=== PATIENT | male | born 1955 | race Caucasian/White ===

== ENCOUNTER 2016-06-30 22:09 | Emergency (ER) | payer MEDICAID, OTHER ==
[~2016-06-30] VITALS: Ht 172.7 cm; Wt 77.1 kg
[2016-06-30 22:33] VITALS: BP 141/77
[2016-06-30] MEDS ORDERED: PredniSONE 20mg tab ORAL ONE (22:45)
[2016-06-30] MEDS ORDERED: PREDNISONE20 MG ORAL (22:54)
[2016-06-30] MEDS ORDERED: BENADRYL25 MG ORAL (22:54)
--- NOTE | 2016-06-30 22:55 | Emergency Room Report ---
History of Present Illness General Chief Complaint: Allergic Reaction Source: Patient Present Illness HPI Is a 61-year-old male with her sensitive skin. He has a lot of allergies. His but from home deodorizer spray. She sprayed it. Shortly afterward he started breaking out to his face. He started getting warm and red. Denies any fever chills denies shortness of breath. Similar symptom in the past. He took Claritin before coming here. No other complaint. Allergies: Coded Allergies: ASPIRIN (Verified Allergy, Unknown, 06/30/16) CEPHALEXIN (Verified Allergy, Unknown, 06/30/16) EGG (Verified Allergy, Unknown, 06/30/16) SULFA (SULFONAMIDE ANTIBIOTICS) (Verified Allergy, Unknown, 06/30/16) SULFAMETHOXAZOLE (Verified Allergy, Unknown, 06/30/16) TRIMETHOPRIM (Verified Allergy, Unknown, 06/30/16) Patient History Past Medical History: see triage record, old chart reviewed Past Surgical History: other Pertinent Family History: none Social History: Denies: smoking Immunizations: other Reviewed Nursing Documentation: PMH: Agreed, PSxH: Agreed Review of Systems Eye: Denies: blurred vision, eye pain ENT: Denies: ear pain, nose congestion, throat swelling Respiratory: Denies: cough, shortness of breath Cardiovascular: Denies: chest pain, palpitations Gastrointestinal: Denies: abdominal pain, diarrhea, nausea, vomiting Musculoskeletal: Denies: back pain, joint pain Skin: Denies: rash Neurological: Denies: headache, numbness Endocrine: Denies: increased thirst, increased urine Hematologic/Lymphatic: Denies: easy bruising All Other Systems: negative except mentioned in HPI Physical Exam Vital Signs Date Time Temp Pulse Resp B/P Pulse Ox O2 Delivery O2 Flow Rate FiO2 06/30/16 22:16 97.5 76 18 188/77 99 Room Air vital hypertension Sp02 EP Interpretation: reviewed, normal General Appearance: well appearing, no apparent distress, alert Head: normocephalic, atraumatic Eyes: bilateral eye EOMI, bilateral eye PERRL ENT: hearing grossly normal, normal pharynx Neck: full range of motion, supple, no meningismus Respiratory: chest non-tender, lungs clear, normal breath sounds Cardiovascular #1: regular rate, rhythm, no murmur Gastrointestinal: normal bowel sounds, non tender, no mass, no organomegaly, no bruit, non-distended Musculoskeletal: back normal, gait/station normal, normal range of motion Neurologic: alert, oriented x3 Psychiatric: mood/affect normal Skin: warm/dry, other - Scatter redness and urticaria and neck. Medical Decision Making Diagnostic Impression: Primary Impression: Allergic reaction Qualified Codes: T78.40XA - Allergy, unspecified, initial encounter Additional Impression: Hypertension Qualified Codes: I10 - Essential (primary) hypertension ER Course Patient present with skin irritation and possible allergic reaction. No anaphylaxis. We'll discharge home. Last Vital Signs Date Time Temp Pulse Resp B/P Pulse Ox O2 Delivery O2 Flow Rate FiO2 06/30/16 22:33 97.5 64 18 141/77 99 Room Air Status: improved Disposition: HOME, SELF-CARE Condition: Stable Scripts Diphenhydramine Hcl* (BENADRYL*) 25 Mg Capsule 50 MG ORAL Q6H Y for Itching, #30 CAP Prov: CAMERON JEREZ M.D. 06/30/16 Prednisone* (PREDNISONE*) 20 Mg Tablet 60 MG ORAL DAILY, #12 TAB Prov: CAMERON JEREZ M.D. 06/30/16 Patient Instructions: Allergies Additional Instructions: Followup with your Dr. in 7 days. Return if worse. CAMERON JEREZ M.D. Jun 30, 2016 22:55
[2016-06-30 23:03] VITALS: BP 141/77
== END 2016-06-30 23:03 | disposition home or self-care (01) ==
LOC: EMR 22:54
DX: T78.1XXA Other adverse food reactions, not elsewhere classified, initial encounter (principal); X58.XXXA Exposure to other specified factors, initial encounter; I10 Essential (primary) hypertension; Z88.1 Allergy status to other antibiotic agents; Z88.2 Allergy status to sulfonamides; Z88.6 Allergy status to analgesic agent; Z91.012 Allergy to eggs
CPT/HCPCS: 99284

== ENCOUNTER → 2016-10-20 | Emergency (ER) | payer MEDICAID ==
[~2016-10-20] VITALS: Ht 172.7 cm; Wt 74.8 kg
[~2016-10-20] MED LIST: BENADRYL25 MG ORAL; IBUPROFEN600 MG ORAL; PREDNISONE20 MG ORAL
[2016-10-20 12:51] VITALS: BP 169/89
--- NOTE | 2016-10-20 14:35 | Emergency Room Report ---
History of Present Illness General Chief Complaint: Lower Extremity Injury Source: Patient Present Illness HPI 61 YO Male presents to the ED c/o consistent right foot pain x 10 days.Pt describes pain as 3/10 in severity sore/ache. pt. reports recalling slight twisting of ankle when stepping on uneven side walk, denies appreciable trauma otherwise. pt. reports walking daily with in attempt to be healthy. pt. denies previous injury to the foot. pt. states he took Motrin with mild relief, but his symptoms have returned. denies bruising, decreased temperature, or skin color changes to the foot. Denies numbness tingling or loss of sensation or gross motor movements of the extremities, incontinence of bowel or bladder. Denies CP, Palpitations, LOC, AMS, dizziness, Changes in Vision, Sensation, paresthesias, or a sudden severe headache Allergies: Coded Allergies: ASPIRIN (Verified Allergy, Unknown, 06/30/16) CEPHALEXIN (Verified Allergy, Unknown, 06/30/16) EGG (Verified Allergy, Unknown, 06/30/16) SULFA (SULFONAMIDE ANTIBIOTICS) (Verified Allergy, Unknown, 06/30/16) SULFAMETHOXAZOLE (Verified Allergy, Unknown, 06/30/16) TRIMETHOPRIM (Verified Allergy, Unknown, 06/30/16) Patient History Past Medical History: see triage record Past Surgical History: none Pertinent Family History: none Immunizations: UTD Reviewed Nursing Documentation: PMH: Agreed, PSxH: Agreed Nursing Documentation-PMH Past Medical History: No History, Except For Review of Systems All Other Systems: negative except mentioned in HPI Physical Exam Vital Signs Date Time Temp Pulse Resp B/P Pulse Ox O2 Delivery O2 Flow Rate FiO2 10/20/16 12:51 98.1 81 17 169/89 98 Room Air Sp02 EP Interpretation: reviewed, normal General Appearance: no apparent distress, alert, GCS 15, non-toxic Head: normocephalic, atraumatic Eyes: bilateral eye PERRL, bilateral eye normal inspection ENT: hearing grossly normal, normal voice Neck: full range of motion, supple/symm/no masses Respiratory: lungs clear, normal breath sounds, speaking full sentences Cardiovascular #1: regular rate, rhythm, no edema Cardiovascular #2: 2+ dorsalis pedis (R) Musculoskeletal: back normal, gait/station normal, normal range of motion, tender - ttp to the lateral right ankle, and the dorsum of the right mid foot. no bruises, no erythema, NVI, no obvious deformity Neurologic: alert, oriented x3, responsive, motor strength/tone normal, sensory intact, speech normal Psychiatric: judgement/insight normal, memory normal, mood/affect normal Skin: normal color, no rash, warm/dry, well hydrated, other - pt has moderate visible spider veins to the bilateral feet, no evidence of circulatory compromise at this time. no lesions. Medical Decision Making PA Attestation Dr. Sutton is my supervising Physician whom patient management has been discussed with. Diagnostic Impression: Primary Impression: Sprain of foot, right Qualified Codes: S93.601A - Unspecified sprain of right foot, initial encounter Additional Impression: Heel spur Qualified Codes: M77.31 - Calcaneal spur, right foot ER Course 61 YO Male presents to the ED c/o consistent right foot pain x 10 days.Pt describes pain as 3/10 in severity sore/ache. pt. reports recalling slight twisting of ankle when stepping on uneven side walk, denies appreciable trauma otherwise. pt. reports walking daily with in attempt to be healthy. pt. denies previous injury to the foot. pt. states he took Motrin with mild relief, but his symptoms have returned. denies bruising, decreased temperature, or skin color changes to the foot. Denies numbness tingling or loss of sensation or gross motor movements of the extremities, incontinence of bowel or bladder. Denies CP, Palpitations, LOC, AMS, dizziness, Changes in Vision, Sensation, paresthesias, or a sudden severe headache. Ddx considered but are not limited to Fracture, dislocation, contusion, Sprain/ Strain/Spasm, heel spur, plantar fasciitis just to name a few Vital signs: are WNL, pt. is afebrile H&PE are most consistent with musculoskeletal injury will perform imaging to r/ o fractures/dislocations. ORDERS: - X-ray right foot 3 views - negative for fx, Dislocation, or significant soft tissue injury, significant arthritic changes, and suspected heel spur per preliminary read in ED by Dr. Sutton - interpretation is scribed by PA. -- X-ray Right ankle 3 views - negative for fx, Dislocation, or significant soft tissue injury, per preliminary read in ED by Dr. Sutton - interpretation is scribed by PA. -Official radiology report of imaging is no acute process, Findings: No acute fractures. No dislocations. Joint spaces are preserved. 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 declined. -Pt. provided with a pair of crutches. I do not suspect an emergent condition at this time. with current presentation pt. is stable for close outpatient follow up. d/w pt. conservative treatment, and to follow up with a primary care provider. pt given a list of primary care clinics for follow up. d/w pt. to return to the ED with worsening or new symptoms. DISCHARGE: At this time pt. is stable for d/c to home. Will provide printed patient care instructions, and any necessary prescriptions. Care plan and follow up instructions have been discussed with the patient prior to discharge. Last Vital Signs Date Time Temp Pulse Resp B/P Pulse Ox O2 Delivery O2 Flow Rate FiO2 10/20/16 12:51 98.1 81 17 169/89 98 Room Air Disposition: HOME, SELF-CARE Condition: Stable Scripts Ibuprofen* (MOTRIN*) 600 Mg Tablet 600 MG ORAL THREE TIMES A DAY, #30 TAB 0 Refills Prov: Jazmín Ramírez 10/20/16 Referrals: [facility] (PCP) Patient Instructions: Foot Sprain Additional Instructions: Take medications as directed. Follow up with a Primary Care Provider in 3-5 days, even if your symptoms have resolved. --Please review list of primary care clinics, if you do not already have a primary care provider Return sooner to ED if new symptoms occur, or current symptoms become worse. - Please note that this Emergency Department Report was dictated using [employer] sales [employer] technology software, occasionally this can lead to erroneous entry secondary to interpretation by the dictation equipment. Jazmín Ramírez Oct 20, 2016 14:35
--- NOTE | 2016-10-20 14:51 | Diagnostic Imaging Report ---
Indication: PAIN nontraumatic pain x3 days Technique: 3 views right foot Comparison: none Findings: No acute fractures. No dislocations. Joint spaces are preserved. 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
== END | disposition home or self-care (01) ==
LOC: EMR 13:10
DX: S93.601A Unspecified sprain of right foot, initial encounter (principal); M77.31 Calcaneal spur, right foot; X58.XXXA Exposure to other specified factors, initial encounter; Y93.9 Activity, unspecified; Y92.9 Unspecified place or not applicable; Z88.6 Allergy status to analgesic agent; Z88.2 Allergy status to sulfonamides; Z91.012 Allergy to eggs
CPT/HCPCS: 99283

== ENCOUNTER 2016-12-09 11:47 | Emergency (ER) | payer MEDICAID ==
[~2016-12-09] VITALS: Ht 172.7 cm; Wt 74.8 kg
[2016-12-09] MEDS ORDERED: Sodium Chloride 500ML 500 ML IV ONE (12:24)
[2016-12-09 12:29] VITALS: BP 153/75
--- NOTE | 2016-12-09 12:29 | Emergency Room Report ---
History of Present Illness General Chief Complaint: Nausea, Vomiting, and Diarrhea Source: Patient Present Illness [facility] Patient reports that he was at [place] urgent care yesterday He was given Ultram He has usually been on Motrin He felt that soon after that medication he has become more dizzy lightheaded Patient felt uncomfortable in the epigastric area has become nauseated and vomited several times Denies any lower abdominal pain There is no obvious chest pain denies any back or flank pain Allergies: Coded Allergies: ASPIRIN (Verified Allergy, Unknown, 06/30/16) CEPHALEXIN (Verified Allergy, Unknown, 06/30/16) EGG (Verified Allergy, Unknown, 06/30/16) SULFA (SULFONAMIDE ANTIBIOTICS) (Verified Allergy, Unknown, 06/30/16) SULFAMETHOXAZOLE (Verified Allergy, Unknown, 06/30/16) TRIMETHOPRIM (Verified Allergy, Unknown, 06/30/16) Patient History Past Medical History: see triage record Pertinent Family History: none Reviewed Nursing Documentation: PMH: Agreed, PSxH: Agreed Nursing Documentation-PMH Past Medical History: No History, Except For Hx Cardiac Problems: No Hx Hypertension: No Hx Pacemaker: No Hx Asthma: No Hx COPD: No Hx Diabetes: No Hx Cancer: No Hx Gastrointestinal Problems: No Hx Dialysis: No History Of Psychiatric Problem: No Hx Neurological Problems: No Hx Cerebrovascular Accident: No Hx Seizures: No Review of Systems All Other Systems: negative except mentioned in HPI Physical Exam Vital Signs Date Time Temp Pulse Resp B/P (MAP) Pulse Ox O2 Delivery O2 Flow Rate FiO2 12/09/16 12:09 97.5 74 20 168/90 100 Room Air Sp02 EP Interpretation: reviewed, normal General Appearance: mild distress - appears nauseous Head: normocephalic, atraumatic Eyes: bilateral eye PERRL, bilateral eye EOMI ENT: hearing grossly normal, normal pharynx, TMs + canals normal, uvula midline Neck: full range of motion, supple, no meningismus, no bony tend Respiratory: lungs clear, normal breath sounds, no rhonchi, no respiratory distress, no retraction, no accessory muscle use Cardiovascular #1: normal peripheral pulses, regular rate, rhythm, no edema, no gallop, no JVD, no murmur Gastrointestinal: normal bowel sounds, non tender, soft, no mass, no organomegaly, non-distended, no guarding, no hernia, no pulsatile mass, no rebound Genitourinary: no CVA tenderness Musculoskeletal: normal inspection Neurologic: oriented x3, responsive, ice house supervisor III-XII nml as tested, motor strength/ tone normal, sensory intact Psychiatric: mood/affect normal Skin: other - Diffuse nonspecific dermatitis patient reports that he was diagnosed with eczema and this is his usual rash, patient also appeared mildly jaundiced to me, Lymphatic: normal inspection, no adenopathy Medical Decision Making Diagnostic Impression: Primary Impression: Medication reaction Additional Impression: Nausea & vomiting ER Course Multiple differentials considered Given the patient's discomfort appears to have possibly reaction to medication however other pathology such as cardiac infectious pathology entertained along with gastrointestinal Patient's blood work is appropriate Patient has done better with acute intervention in the ER Patient will be stopping his new medication darian, I spoke with [facility] and they will be scheduling a close followup with the patient's primary physician Labs Test 12/09/16 12:20 12/09/16 13:00 White Blood Count 6.9 K/UL (4.8-10.8) Red Blood Count 4.54 M/UL (4.70-6.10) Hemoglobin 13.8 G/DL (14.2-18.0) Hematocrit 41.1 % (42.0-52.0) Mean Corpuscular Volume 90 FL (80-99) Mean Corpuscular Hemoglobin 30.5 PG (27.0-31.0) Mean Corpuscular Hemoglobin Concent 33.7 G/DL (32.0-36.0) Red Cell Distribution Width 10.9 % (11.6-14.8) Platelet Count 227 K/UL (150-450) Mean Platelet Volume 5.8 FL (6.5-10.1) Neutrophils (%) (Auto) 79.8 % (45.0-75.0) Lymphocytes (%) (Auto) 11.9 % (20.0-45.0) Monocytes (%) (Auto) 4.7 % (1.0-10.0) Eosinophils (%) (Auto) 1.8 % (0.0-3.0) Basophils (%) (Auto) 1.7 % (0.0-2.0) Sodium Level 142 mEQ/L (135-145) Potassium Level 3.9 mEQ/L (3.4-4.9) Chloride Level 103 mEQ/L (98-107) Carbon Dioxide Level 29 mEQ/L (20-30) Anion Gap 10 (5-15) Blood Urea Nitrogen 13 mg/dL (7-23) Creatinine 0.8 mg/dL (0.7-1.2) Estimat Glomerular Filtration Rate > 60 mL/min (>60) Glucose Level 114 mg/dL (74-106) Calcium Level 9.2 mg/dL (8.6-10.2) Total Bilirubin 1.2 mg/dL (0.0-1.2) Direct Bilirubin 0.2 mg/dL (0.1-0.3) Aspartate Amino Transf (AST/SGOT) 16 U/L (5-40) Alanine Aminotransferase (ALT/SGPT) 5 U/L (3-41) Alkaline Phosphatase 64 U/L (40-129) Total Creatine Kinase 82 U/L (38-174) Creatine Kinase MB 2.2 ng/mL (< 6.7) Creatine Kinase MB Relative Index 2.6 Troponin I < 0.30 ng/mL (<=0.30) Total Protein 7.1 g/dL (6.6-8.7) Albumin 4.5 g/dL (3.5-5.2) Globulin 2.6 g/dL Albumin/Globulin Ratio 1.7 (1.0-2.7) Lipase 20 U/L (< 60) Urine Color Pale yellow Urine Appearance Clear Urine pH 8 (4.5-8.0) Urine Specific [place] 1.010 (1.005-1.035) Urine Protein Negative (NEGATIVE) Urine Glucose (UA) Negative (NEGATIVE) Urine Ketones 3+ (NEGATIVE) Urine Occult Blood 1+ (NEGATIVE) Urine Nitrite Negative (NEGATIVE) Urine Bilirubin Negative (NEGATIVE) Urine Urobilinogen Normal MG/DL (0.0-1.0) Urine Leukocyte Esterase Negative (NEGATIVE) Urine RBC 0-2 /HPF (0 - 0) Urine WBC 0-2 /HPF (0 - 0) Urine Squamous Epithelial Cells Occasional /LPF Urine Bacteria Occasional /HPF (NONE) Rhythm Strip Diag. Results EP Interpretation: yes Rate: 77 Rhythm: NSR, no PVC's, no ectopy Chest X-Ray Diagnostic Results Chest X-Ray Diagnostic Results : Chest X-Ray Ordered: Yes # of Views/Limited/Complete: 1 View Indication: Chest Pain EP Interpretation: Yes Interpretation: no consolidation, no effusion, no pneumothorax Impression: No acute disease Electronically Signed by: Rick Roberts DO CT/MRI/US Diagnostic Results CT/MRI/US Diagnostic Results : Impression CT head: nad Last Vital Signs Date Time Temp Pulse Resp B/P (MAP) Pulse Ox O2 Delivery O2 Flow Rate FiO2 12/09/16 12:09 97.5 74 20 168/90 100 Room Air Status: improved Disposition: HOME, SELF-CARE Condition: Improved Scripts Ondansetron Odt* (ZOFRAN ODT*) 4 Mg Tab.rapdis 4 MG ORAL Q6H Y for Nausea & Vomiting, #10 TAB 0 Refills Prov: RICK ROBERTS D.O. 12/09/16 Referrals: [facility] (PCP) Additional Instructions: Patient is provided with the discharge instructions notified to follow up with primary doctor in the next 2-3 days otherwise return to the er with any worsening symptoms. Please note that this report is being documented using [employer] technology. This can lead to erroneous entry secondary to incorrect interpretation by the dictating instrument. RICK ROBERTS D.O. Dec 09, 2016 12:29
[2016-12-09 12:36] LABS: BASOPHILS % (AUTO) 1.7 % (0.0-2.0); EOSINOPHILS % (AUTO) 1.8 % (0.0-3.0); LYMPHOCYTES % (AUTO) 11.9 % (20.0-45.0); MEAN CORPUSCULAR HEMOGLOBIN 30.5 PG (27.0-31.0); MEAN CORPUSCULAR HGB CONC 33.7 G/DL (32.0-36.0); MEAN CORPUSCULAR VOLUME 90 FL (80-99); MEAN PLATELET VOLUME 5.8 FL (6.5-10.1); MONOCYTES % (AUTO) 4.7 % (1.0-10.0); NEUTROPHILS % (AUTO) 79.8 % (45.0-75.0); PLATELET COUNT 227 K/UL (150-450); RED BLOOD COUNT 4.54 M/UL (4.70-6.10); RED CELL DISTRIBUTION WIDTH 10.9 % (11.6-14.8); WHITE BLOOD COUNT 6.9 K/UL (4.8-10.8)
[2016-12-09 12:54] LABS: ALANINE AMINOTRANSFERASE 5 U/L (3-41); ALBUMIN/GLOBULIN RATIO 1.7 (1.0-2.7); ANION GAP 10 (5-15); ASPARTATE AMINO TRANSFERASE 16 U/L (5-40); CALCIUM 9.2 mg/dL (8.6-10.2); CARBON DIOXIDE 29 mEQ/L (20-30); CHLORIDE 103 mEQ/L (98-107); CREATININE 0.8 mg/dL (0.7-1.2); GLOMERULAR FILTRATION RATE > 60 mL/min (>60); HEMOLYSIS 1; LIPASE 20 U/L (< 60); POTASSIUM 3.9 mEQ/L (3.4-4.9); SODIUM 142 mEQ/L (135-145); TOTAL PROTEIN 7.1 g/dL (6.6-8.7)
[2016-12-09 12:55] LABS: TROPONIN I < 0.30 ng/mL (<=0.30)
[2016-12-09 13:05] LABS: CKMB 2.2 ng/mL (< 6.7)
[2016-12-09] MEDS ORDERED: Mylanta II UD 30ml ORAL ONE (13:15)
[2016-12-09] MEDS ORDERED: Dicyclomine HCl 10mg/5ml oral soln ORAL ONE (13:15)
[2016-12-09 13:16] LABS: BILIRUBIN,DIRECT 0.2 mg/dL (0.1-0.3)
[2016-12-09 13:21] LABS: APPEARANCE,URINE CLEAR; KETONES,URINE 3+ (NEGATIVE); LEUKOCYTE ESTERASE ,URINE NEGATIVE (NEGATIVE); NITRITE,URINE NEGATIVE (NEGATIVE); PH,URINE 8 (4.5-8.0); PROTEIN,URINE NEGATIVE (NEGATIVE); UROBILINOGEN,URINE NORMAL MG/DL (0.0-1.0)
[2016-12-09 13:44] LABS: BACTERIA,URINE OCCASIONAL /HPF; RBC,URINE 0-2 /HPF (0 - 0); SQUAMOUS EPITHELIAL CELL,UR OCCASIONAL /LPF (NONE/OCC); WBC,URINE 0-2 /HPF (0 - 0)
--- NOTE | 2016-12-09 13:51 | Diagnostic Imaging Report ---
Indication: Headache Technique: Contiguous 5 mm thick transaxial imaging of the head obtained in a Siemens Sensation [address] scanner. Soft tissue and bone windows generated. Total Dose length Product (DLP): [address] Dose Index Volume (CTDIvol): 70.38, 0.15 mGy Comparison: none Findings: The size and configuration of the cortical sulci, basal cisterns, and ventricles are within normal limits for age. There is no mass effect, midline shift, or edema identified. There is no evidence of acute hemorrhage or abnormal intra-axial or extra-axial fluid collections. The bones and soft tissues are unremarkable. Impression: No mass effect, edema or acute bleed. The CT scanner at [facility] is accredited by the [employer] and the scans are performed using dose optimization techniques as appropriate to a performed exam including Automatic Exposure control.
--- NOTE | 2016-12-09 13:59 | Diagnostic Imaging Report ---
Indication: Pain Comparison: Or 21 on the A single view chest radiograph was obtained. Findings: Cardiomediastinal appearance is within normal limits for age. Pulmonary vascularity is appropriate. The diaphragmatic contour is smooth and costophrenic angles are sharp. No pleural effusions are identified. The bones are osteopenic. Impression: No acute findings
[2016-12-09 14:13] VITALS: BP 140/74
[2016-12-09] MEDS ORDERED: ZOFRAN ODT4 MG ORAL (14:47)
[2016-12-09 14:58] VITALS: BP 134/67
[2016-12-09 14:59] VITALS: BP 134/67
--- NOTE | 2016-12-16 23:29 | Cardiology Report ---
APPROVED REPORT EKG Measurement Heart [id number] Normal sinus rhythm Right bundle branch block Possible Lateral infarct, age undetermined Cannot rule out Inferior infarct, age undetermined Abnormal ECG
== END 2016-12-09 15:06 | disposition home or self-care (01) ==
LOC: EMR 12:19
DX: R11.2 Nausea with vomiting, unspecified (principal); T40.4X5A Adverse effect of other synthetic narcotics, initial encounter; Z88.6 Allergy status to analgesic agent; Z88.2 Allergy status to sulfonamides; Z91.012 Allergy to eggs
CPT/HCPCS: 36415; 70450; 71010; 80053; 81003; 82248; 82550; 82553; 83690; 84484; 85025; 93005; 96361; 96374; 96375; 99284; J2405; J7040; S0028